=== PATIENT | female | born 1985 | race Caucasian/White ===

== ENCOUNTER 2019-11-25 22:09 | Emergency (ER) | payer SELFPAY ==
[2019-11-25 22:16] VITALS: BP 167/102; PULSE 81; RESP 16; TEMP 36.2; O2SAT 98; BMI 28.3
--- NOTE | 2019-11-25 22:25 | ED_ITS ---
HPI - Back Pain/Injury General: Chief Complaint: Back Pain/Injury Stated Complaint: back pain Time Seen by Provider: 11/25/19 22:14 History of Present Illness: HPI Narrative: Aline is a 34-year-old female who comes in complaining of severe back pain worse on the right than left. She complains the pain radiates all the way down her right leg to just below her knee. 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 Patient denies any saddle anesthesia, loss of bowel or bladder control, fever, abdominal pain or urinary type symptoms. Patient states she is on her menstrual cycle at this time but it is no worse than normal. Patient states any kind of bending or stooping or lifting makes her pain worse. She denies any other complaints or concerns and she denies any recurrent or new trauma to her back. Associated symptoms: Deny abdominal pain, chills, difficulty walking, dysuria, fatigue, fever(s), hematuria, nausea, syncope, urinary urgency or vomiting Review of Systems Const: Denies: fever(s), chills, body aches, fatigue, malaise or diaphoresis Eyes: Denies: change in vision, blurry vision, blind spots or photophobia ENMT: Denies: throat pain, odynophagia, hoarseness, swelling of lips/tongue, ear or mastoid pain, ear discharge, change in hearing or nasal discharge Card: Denies: chest pain, palpitations, irregular heart rhythm, edema, lightheadedness, syncope, pre-syncope, dyspnea on exertion or orthopnea Resp: Denies: dyspnea, productive cough, non-productive cough, wheezing, hemoptysis or chest congestion GI: Denies: abdominal pain, nausea, vomiting, hematemesis, coffee ground emesis, heartburn, diarrhea, constipation, GI cramping, hematochezia or melena : Denies: flank pain, dysuria, urinary frequency, urinary urgency or hematuria Musc: Reports: back pain and muscle cramps; Denies: neck pain, extremity pain, extremity swelling, joint pain, joint swelling, joint redness, joint warmth or joint stiffness Skin/Breast: Denies: rash, pruritus, erythema, skin tenderness or jaundice Neuro: Denies: headache(s), numbness in extremities, weakness in extremities, sensory changes, lack of coordination, difficulty walking, dizziness, vertigo, confusion or Slurred speech present Marcos/Lymph: Denies: easy bruising, easy bleeding, petechiae, purpura or enlarged lymph nodes All/Imm: Denies: urticaria, throat swelling, tongue swelling, facial swelling or acute wheezing PFSH ED PFSH: Medical History DDD (degenerative disc disease), lumbar Social History Smoking and tobacco status: current every day smoker Female Reproductive History: Date of last menstrual period: 11/25/19 Physical Exam Const: COMMON NORMALS: no acute distress, patient oriented x3, no limitations, healthy appearing and well nourished GENERAL APPEARANCE: cooperative, well kempt and well developed HENMT: COMMON NORMALS: normocephalic, atraumatic, external ears normal, EAC's normal and Normal external nose present HEAD & SCALP: normal to inspection, normocephalic and atraumatic FACE & SINUS: normal facial exam and face s ymmetric NOSE: Normal external nose present and Normal nares present EXTERNAL EAR: Yes external ears normal EXTERNAL AUDITORY CANAL: EAC's normal MOUTH: Normal oral and palatal mucosa present, lip normal and tongue normal Eye: COMMON NORMALS: Equal, round and reactive pupils present and conjunctivae normal GENERAL EYE: appearance normal, both eyes and all related structures ALIGNMENT: Yes alignment normal PERIORBITAL: periorbital findings normal EYELID: eyelids normal CONJUNCTIVA: Yes conjunctivae normal SCLERA: sclerae normal PUPIL: Yes Equal, round and reactive pupils present Neck/C-Spine: COMMON NORMALS: full ROM, no lymphadenopathy, supple and no JVD GENERAL: Yes normal visual inspection and Yes trachea midline Chest: COMMONS NORMALS: normal inspection of the chest and normal palpation of entire chest wall Resp: COMMON NORMALS: normal respiratory effort, No retractions and No use of accessory muscles EFFORT & INSPECTION: Yes able to speak in complete sentences and Yes symmetric chest movement AUSCULTATION: no crackles, no rales, no rhonchi and no wheezes Cardio: COMMON NORMALS: no JVD, regular rate, regular rhythm, S1 normal heart sound present and S2 normal heart sound present RATE: regular rate RHYTHM: regular rhythm HEART SOUNDS: S1 normal heart sound present, S2 normal heart sound present, no click, no gallops, no murmurs, no rubs and abnormal split S2 GI: COMMON NORMALS: Soft to palpation and No hepatosplenomegaly present PALPATION: Yes Soft to palpation, No Tenderness to palpation present (GI), No Guarding due to palpation present (GI), No Rigid due to palpation, Yes No hepatosplenomegaly present, No Hernia present, No Palpable mass present and No Pulsatile mass present : EXTERNAL FEMALE EXAM: No Hernia present Back/Pelvis: LUMBAR SPINE/LOWER BACK: Yes ROM limited, Yes pain with ROM, No lumbar spinal tenderness, Yes paraspinal muscle tenderness, Yes paraspinal muscle spasm, Yes straight leg raise positive right Straight leg raise positive details right: at 30 degrees and No straight leg raise positive left SACROILIAC JOINTS: Yes SI joints normal Neuro: COMMON NORMALS: patient oriented x3, CN's II-XII intact bilaterally, moves all extremities, no focal motor deficits and no sensory deficits noted SPEECH: speech normal DEEP TENDON REFLEXES: Right patellar reflex intensity grade: 2+, Left patellar reflex intensity grade: 2+, Right ankle reflex intensity grade: 2+ and Left ankle reflex intensity grade: 2+ PLANTAR REFLEX: downgoing: bilateral Psych: COMMON NORMALS: mental status grossly normal, Normal thought process present, cooperative, normal affect, speech normal and activity/motor behavior normal APPEARANCE: Yes well kempt SPEECH: Yes normal speech THOUGHT PROCESS: Normal thought process present Skin: COMMON NORMALS: no rashes or lesions noted, turgor normal, no jaundice, no petechiae and no mottling GENERAL SKIN EXAM: no rashes or lesions noted an d turgor normal Course Vital Signs: Vital signs: Vital Signs Temperature 97.1 F L 11/25/19 22:16 Pulse Rate 78 11/26/19 01:01 Respiratory Rate 18 11/26/19 01:01 Blood Pressure 123/78 11/26/19 01:01 Pulse Oximetry 99 11/26/19 01:01 MDM - Back Pain/Injury MDM Narrative: Medical decision making narrative: Aline is a nice 34-year-old female who comes in with a flareup of her chronic back pain. She has no abdominal pain, fever, loss of bowel or bladder control, saddle anesthesia or leg numbness or weakness to suggest any form of CRAFTI as a cause for her symptoms. 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 She has no dysuria, fever, or any abdominal pain to suggest anything intra-abdominal. The patient has a positive straight leg raising test on the right. There is been no trauma or anything that would indicate a need for CT or plain films of the back at this time. Lab Data: Labs: Lab Results 11/26/19 11/26/19 Range/Units 00:10 00:10 HCG, Qual Negative (Negative) Urine Color Yellow (Yellow) Urine Appearance Sl hazy (CLEAR) Urine pH 6 (5-7) Ur Specific Gravit y 1.020 (1.005-1.030) Urine Protein Neg (Negative) Urine Glucose (UA) Norm (Normal) Urine Ketones Negative (Negative) Urine Blood 3+ H (Negative) Urine Nitrate Negative (Negative) Urine Bilirubin Neg (NEGATIVE) Urine Urobilinogen Neg (Negative) mg/dL Ur Leukocyte Aubree ase Trace H (Negative) Urine RBC 5-10 H (0-2) /hpf Urine WBC 5-10 H (0-5) /hpf Ur Squamous Epith Cells 0-4 H (0-5) Urine Bacteria 1+ H (NONE) Discharge Plan Discharge Patient Disposition: Home, Self-Care Clinical Impression: DDD (degenerative disc disease), lumbar Sciatica Qualifiers: Laterality: right Qualified Code(s): M54.31 - Sciatica, right side Condition: Stable Prescriptions: New cyclobenzaprine 10 mg tablet 10 mg PO TID PRN (Reason: muscle spasm) Qty: 30 RF: 0 [place] 5-325 mg tablet 1 tab PO Q6H PRN (Reason: pain) 5 Days Qty: 16 RF: 0 prednisone 10 mg tablets,dose pack See Rx Instructions .ROUTE .COMPLEX Qty: 21 RF: 0 Discharge Orders: Discharge Order (Routine); Ordered 11/25/19 Ordered By: Gilma Martinez Referrals: Zak Flores MD [Physician] - 1-3 days Discharge Diet: Advance as tolerated Discharge Activity: Increase activity as tolerated Patient Instructions: Sciatica (ED) Activity Restrictions/Additional Instructions: Please return to the ER immediately for any of the signs or symptoms listed on your discharge instruction sheets, worsening/changing of your symptoms, you are not getting better as quickly as expected, or for ANY other cause or concerns. Please return to the ER for fever, loss of bowel or bladder control, pain radiating down both legs, your leg becomes weak or numb, your pain worsens, or for any other cause for concern. Stand Alone Forms: Work/School Release Discharge Date/Time: 11/26/19 01:02 Coding Level of Care Code ED [employer] for Jose Marting Fwd Exam Comprehensive
[2019-11-25] MEDS: HYDROcodone-acetaminophen 5-325 mg Tablet 1 TAB PO (22:42)
[2019-11-25] MEDS: predniSONE 20 mg Tablet 60 MG PO (22:43)
[2019-11-25] MEDS: ketorolac 60 mg/2 mL INJ IM (22:43)
[2019-11-25] MEDS: orphenadrine 30 mg/mL Inj 2 mL 60 MG IM (22:45)
[2019-11-26 00:51] LABS: Bilirubin Urine Neg (NEGATIVE); Blood Urine 3+ (Negative); Glucose Urine UA Norm (Normal); Ketones Urine Negative (Negative); Leukocyte Esterase Urine Trace (Negative); Nitrate Urine Negative (Negative); Protein Urine Neg (Negative); Urine Appearance SL Hazy (CLEAR); Urine Color Yellow (Yellow); Urobilinogen Urine Neg (Negative); pH Urine 6 (5-7)
[2019-11-26 00:56] LABS: Bacteria Urine 1+; HCG Qualitative Urine. Negative (Negative); Squamous Epithelial Cell Urine 0-4 (0-5)
[2019-11-26 01:01] VITALS: BP 123/78; PULSE 78; RESP 18; O2SAT 99
--- NOTE | 2019-11-26 14:06 | DCPLANNER ---
practice performance manager had message to schedule a follow up appointment for patient with Dr. Flores. practice performance manager called [facility], spoke with Kathie. practice performance manager was told that patients information would be printed and reviewed. Clinic will call nurse case manager and patient with appointment information.
--- NOTE | 2019-11-29 08:55 | DCPLANNER ---
Senthil from Dr. Chung office, called business case analyst with appointment information. A follow up appointment is scheduled for Monday, December 04, 2019 at 8:00 with Ratna Castaneda. Clinic will call patient with appointment information.
--- NOTE | 2019-12-11 13:21 | DCPLANNER ---
Patient did attend appointment scheduled for 12.04.[address] Chung office.
== END 2019-11-26 01:02 | disposition home or self-care (01) ==
PROVIDERS: Emergency Provider Emergency Medicine
DX: M51.16 Intervertebral disc disorders with radiculopathy, lumbar region (principal); F17.210 Nicotine dependence, cigarettes, uncomplicated
CPT/HCPCS: 12345; 81001; 81025; 96372; 99282; 99283; J1885; J2360; J7512